=== PATIENT | female | born 1980 | race Hispanic/Latino ===

== ENCOUNTER 2024-09-01 11:38 | Emergency (ER) | payer OTHER ==
[~2024-09-01] VITALS: Ht 149.9 cm; Wt 59.0 kg
[~2024-09-01 11:38] MED LIST: OMEPRAZOLE40 MG PO; PROBIOTIC1 EAC1 PO; SUCRALFATE1 GM PO
[2024-09-01 12:02] VITALS: TEMP 97.8
[2024-09-01 13:12] LABS: BASOPHILS % 0.7 % (0.0-1.0); EOSINOPHILS % 0.7 % (0.0-6.0); HEMATOCRIT 39.9 % (34.2-44.1); HEMOGLOBIN 13.9 g/dL (12.0-16.0); LYMPHOCYTES # (AUTO) 1.8 (1.0-3.2); LYMPHOCYTES % 41.2 % (18.0-39.1); MEAN CORPUSCULAR HEMOGLOBIN 32.1 pg (28-32); MEAN CORPUSCULAR HGB CONC 34.8 g/dL (31-35); MEAN CORPUSCULAR VOLUME 92.1 fL (81-99); MONOCYTES # (AUTO) 0.2 (0.2-0.8); MONOCYTES % 4.6 % (4.4-11.3); NEUTROPHILS # (AUTO) 2.3 (2.1-6.9); NEUTROPHILS % 52.6 % (38.7-80.0); PLATELET COUNT 239 x10e3/uL (140-360); RED BLOOD COUNT 4.33 x10e6/uL (3.6-5.1); RED CELL DISTRIBUTION WIDTH 11.8 % (11.7-14.4); WHITE BLOOD COUNT 4.32 x10e3/uL (4.8-10.8)
[2024-09-01 13:33] LABS: ALBUMIN/GLOBULIN RATIO 1.1 (0.8-2.0); ANION GAP 15.7 mmol/L (8-16); BILIRUBIN,TOTAL 0.5 mg/dL (0.2-1.2); CALCIUM 9.7 mg/dL (8.4-10.2); CREATININE, SERUM 0.99 mg/dL (0.57-1.11); POTASSIUM 3.7 mmol/L (3.5-5.1); TOTAL PROTEIN 7.6 g/dL (6.5-8.1)
[2024-09-01 13:38] LABS: TROPONIN I 0.002 ng/mL (0-0.300)
[2024-09-01] MEDS: MAGNESIUM/ALUMINUM/SIMETHICONE 30 ML UDC PO ONE (14:01)
[2024-09-01] MEDS: LIDOCAINE VISC 2% SOLN 15 ML UDC PO ONE (14:01)
[2024-09-01] MEDS: BELLADONNA ALK/PHENOBARBITAL 5 ML UDC PO STA (14:01)
[2024-09-01 14:06] VITALS: PULSE 70; RESP 15; O2SAT 96
[2024-09-01] MEDS ORDERED: ULTRAM 50MG50 MG PO (14:22)
== END 2024-09-01 14:42 | disposition home or self-care (01) ==
LOC: ER 13:31
DX: R10.13 Epigastric pain (principal)
CPT/HCPCS: 36415; 80053; 83690; 84484; 85025; 93005; 99283

== ENCOUNTER → 2024-09-03 | Day surgery (SDC) | payer OTHER ==
[~2024-09-03] MED LIST changes: +LIDOCAINE HCL 2% LOCAL INJ 5 ML SDV VIAL INJ ONE; +METOCLOPRAMIDE HCL 10 MG/2ML VIAL ONE; +PROPOFOL IV EMULSION 10 MG/ML 20 ML VIAL ONE; +ULTRAM 50MG50 MG PO
[2024-09-03] MEDS: LACTATED RINGER'S 1,000 ML ONE (06:36)
[2024-09-03 07:36] VITALS: TEMP 97.5
[2024-09-03 07:50] VITALS: BP 102/65; PULSE 77; RESP 16; O2SAT 99
== END | disposition home or self-care (01) ==
LOC: ENDO 05:20
PROVIDERS: ATTEND Internal Medicine Gastroenterology
DX: K20.90 Esophagitis, unspecified without bleeding (principal); K29.70 Gastritis, unspecified, without bleeding; K21.9 Gastro-esophageal reflux disease without esophagitis; R19.7 Diarrhea, unspecified; Z71.3 Dietary counseling and surveillance; Z86.19 Personal history of other infectious and parasitic diseases; Z88.0 Allergy status to penicillin; Z68.25 Body mass index [BMI] 25.0-25.9, adult
CPT/HCPCS: 43239; 81025; J2470; J7121; J2003; J2765